=== PATIENT | female | born 1970 | race Caucasian/White ===

== ENCOUNTER 2022-04-11 12:11 | Outpatient (CLI) | payer BC | END 2022-04-11 12:12 | disposition home or self-care (01) | LOC: DTY/OP 12:11 | PROVIDERS: ATTEND Surgery | DX: Z01.818 Encounter for other preprocedural examination (principal); Z71.3 Dietary counseling and surveillance; E66.01 Morbid (severe) obesity due to excess calories; Z68.38 Body mass index [BMI] 38.0-38.9, adult | CPT/HCPCS: 97802 ==

== ENCOUNTER 2022-04-25 02:18 | Inpatient (IN) | payer BC ==
[2022-04-25] MEDS ORDERED: Scopolamine 1.5 mg/72 hour Patch ONE (09:07)
[2022-04-25] MEDS ORDERED: Enoxaparin Sodium 40 MG/0.4 ML SYRINGE ONE (09:08)
[2022-04-25] MEDS ORDERED: Lidocaine 1% w/Epinephrine 1:100K 20 ML VIAL ONE (11:16)
[2022-04-25] MEDS ORDERED: Bupivacaine 0.25% 10 ML VIAL ONE (11:16)
[2022-04-25] MEDS ORDERED: diphenhydrAMINE 50 MG/ML VIAL IVP PRN (11:19)
[2022-04-25] MEDS ORDERED: Promethazine HCl 25 MG/ML VIAL IM PRN ×2 (11:19→13:59)
[2022-04-25] MEDS ORDERED: Morphine 2 MG/ML VIAL SLOW IVP PRN (11:19)
[2022-04-25] MEDS ORDERED: Dextrose 5% in Water 1,000 ML IV PRN (11:19)
[2022-04-25] MEDS ORDERED: Dextrose 50% Abboject 50 ML SYRINGE SLOW IVP PRN (11:19)
[2022-04-25] MEDS ORDERED: hydrALAZINE 20 MG/ML VIAL SLOW IVP PRN (11:19)
[2022-04-25] MEDS ORDERED: Ondansetron PF 4 MG/2 ML Vial IVP PRN (11:19)
[2022-04-25] MEDS ORDERED: Midazolam HCl 2 mg/2 ml Vial ONE (11:20)
[2022-04-25] MEDS ORDERED: fentaNYL Citrate/PF 100 MCG/2 ML SYRINGE ONE (11:21)
[2022-04-25] MEDS ORDERED: Sodium Chloride 0.9% 100 ML ONE (11:30)
[2022-04-25] MEDS ORDERED: cefOXitin 2 GM VIAL ONE (11:30)
[2022-04-25] MEDS ORDERED: diphenhydrAMINE 50 MG/ML VIAL ONE (11:31)
[2022-04-25] MEDS ORDERED: Ondansetron PF 4 MG/2 ML Vial ONE ×2 (11:31→14:25)
[2022-04-25] MEDS ORDERED: Dexamethasone 20 MG/5 ML VIAL ONE (11:31)
[2022-04-25] MEDS ORDERED: Lidocaine 1% PF 5 ML VIAL ONE (11:31)
[2022-04-25] MEDS ORDERED: PROPOFOL 200 MG/20 ML VIAL ONE (11:31)
[2022-04-25] MEDS ORDERED: Ketorolac Tromethamine 30 MG/ML VIAL ONE (11:31)
[2022-04-25] MEDS ORDERED: Rocuronium Bromide 10 MG/ML (10ML VIAL) ONE (11:31)
[2022-04-25] MEDS ORDERED: HYDROmorphone 0.5 MG/0.5 ML SYRINGE ONE (12:50)
[2022-04-25] MEDS ORDERED: SUGAMMADEX SODIUM 200 MG/2 ML VIAL ONE (12:51)
[2022-04-25] MEDS: Ketorolac Tromethamine 30 MG/ML VIAL IVP SCH ×2 (13:30→18:38)
[2022-04-25] MEDS ORDERED: Promethazine HCl 25 MG/ML VIAL IVPB PRN (13:59)
[2022-04-25] MEDS ORDERED: Ondansetron HCl/PF 4 MG/2 ML Vial IVP PRN (13:59)
[2022-04-25] MEDS ORDERED: HYDROmorphone 2 MG/ML VIAL SLOW IVP PRN (13:59)
[2022-04-25] MEDS ORDERED: Metoclopramide HCl 10 MG/2 ML VIAL ONE (14:50)
[2022-04-25] MEDS ORDERED: Fentanyl 100 MCG/2 ML VIAL ONE ×2 (14:51→16:20)
[2022-04-25] MEDS: D5 1/2 NS w/20 mEq KCL 1,000 ML IV SCH ×2 (15:46→18:38)
[2022-04-25 15:48] VITALS: BMI 37.0
[2022-04-26] MEDS: Ketorolac Tromethamine 30 MG/ML VIAL IVP SCH ×2 (00:07→05:27)
[2022-04-26] MEDS: Hydrocodone-Acetamin 15 ML UDCUP PO PRN ×2 (00:07→08:45)
[2022-04-26] MEDS: D5 1/2 NS w/20 mEq KCL 1,000 ML IV SCH ×2 (04:51→11:45)
[2022-04-26 06:09] LABS: #Lymphocytes 1.4 thou/uL (1.20-3.40); #Monocytes 0.9 thou/uL (0.11-0.59); #Neutrophils 11.9 thou/uL (1.40-6.50); %Eosinophils 0.1 % (0.0-10.0); %Lymphocytes 9.5 % (21.0-51.0); %Monocytes 6.4 % (0.0-10.0); %Neutrophils 83.9 % (42.0-75.0); Hemoglobin 12.8 g/dL (12.0-16.0); Mean Corpuscular HGB CONC 33.3 g/dL (32.0-36.0); Mean Corpuscular Hemoglobin 31.1 pg (27.0-31.0); Mean Corpuscular Volume 93.3 fL (78.0-98.0); Mean Platelet Volume 8.2 fL (7.4-10.4); Platelet Count 339 thou/uL (130-400); RBC Distribution Width 11.7 % (11.5-14.5); Red Blood Cell (RBC) Count 4.13 mill/uL (4.20-5.40); White Blood Cell (WBC) Count 14.1 thou/uL (4.8-10.8)
[2022-04-26 06:37] LABS: Anion Gap 14 mmol/L (10-20); BUN (Urea Nitrogen) 9 mg/dL (9.8-20.1); Calc. Creatinine Clearance 149 mL/min (70-130); Carbon Dioxide 27 mmol/L (22-29); Chloride 103 mmol/L (98-107); Estimated GFR 96; Glucose 124 mg/dL (70-105); Potassium 3.7 mmol/L (3.5-5.1); Sodium 140 mmol/L (136-145)
[2022-04-26] MEDS ORDERED: Enoxaparin Sodium 40 MG/0.4 ML SYRINGE SC SCH (09:00)
[2022-04-26] MEDS ORDERED: Pantoprazole 40 MG VIAL IVP SCH (09:00)
[2022-04-26 11:12] VITALS: BP 122/84; TEMP 97
== END 2022-04-26 13:13 | disposition home or self-care (01) | DRG 621 ==
LOC: SURG A 08:44
PROVIDERS: ADMIT Surgery; ATTEND Surgery
PROC: 0DB64Z3 Excision of Stomach, Percutaneous Endoscopic Approach, Vertical (ICD-10-PCS; principal; 2022-04-25)
PROC: 8E0W4CZ Robotic Assisted Procedure of Trunk Region, Percutaneous Endoscopic Approach (ICD-10-PCS; 2022-04-25)
DX: E66.01 Morbid (severe) obesity due to excess calories (principal); Z20.822 Contact with and (suspected) exposure to COVID-19; Z68.39 Body mass index [BMI] 39.0-39.9, adult; E78.2 Mixed hyperlipidemia; I10 Essential (primary) hypertension; K21.9 Gastro-esophageal reflux disease without esophagitis; M15.9 Polyosteoarthritis, unspecified; G47.33 Obstructive sleep apnea (adult) (pediatric); E03.9 Hypothyroidism, unspecified; E78.00 Pure hypercholesterolemia, unspecified; Z90.49 Acquired absence of other specified parts of digestive tract; Z98.890 Other specified postprocedural states; Z90.710 Acquired absence of both cervix and uterus; Z83.3 Family history of diabetes mellitus; Z80.9 Family history of malignant neoplasm, unspecified; Z88.8 Allergy status to other drugs, medicaments and biological substances; Z91.040 Latex allergy status; Z79.899 Other long term (current) drug therapy
CPT/HCPCS: 36415; 80048; 85025; 88307; C9113; J0694; J1100; J1170; J1200; J1650; J1885; J2250; J2405; J2704; J2765; J3010; J3480; J3490; S0020